=== PATIENT | female | born 1985 | race Caucasian/White ===

== ENCOUNTER 2016-04-02 19:47 | Emergency (ER) | payer BC ==
[~2016-04-02] VITALS: Ht 177.8 cm; Wt 94.5 kg
[2016-04-02 19:49] VITALS: BP 169/105; PULSE 98; RESP 16; TEMP 98.3; O2SAT 100
[2016-04-03] MEDS ORDERED: BIRTH CONTROL (00:23)
[2016-04-03] MEDS ORDERED: ZYRT10CA PO (00:23)
[2016-04-03 00:24] VITALS: BP 161/96; PULSE 79; RESP 16; O2SAT 100
[2016-04-03 02:16] LABS: BACTERIA, URINE RARE /hpf; BLOOD, URINE NEG (NEG); CALCIUM OXALATE CRYSTALS,URINE MOD /hpf; COMMENT (UR) CULT NOT INDICATED; CULTURE IF INDICATED CULT NOT INDICATED; GLUCOSE,URINE NEG (NEG); KETONE, URINE NEG (NEG); MUCUS URINE FEW /lpf (OCC); NITRITE,URINE NEG (NEG); SQUAMOUS EPITHELIAL CELL URINE 1 /hpf (0-5); URINE COLOR YELLOW (YELLW/STRAW)
[2016-04-03 02:21] LABS: AUTOMATED NEUTROPHIL # 7.7 TH/MM3 (1.8-7.7); BASOPHIL # 0.1 TH/MM3 (0-0.2); BASOPHIL % 0.5 % (0.0-2.0); EOSINOPHIL # 0.2 TH/MM3 (0-0.4); EOSINOPHIL % 1.8 % (0.0-4.0); HEMATOCRIT 44.7 % (35.0-46.0); HEMO FLAGS DIFF FINAL; LYMPH % 33.3 % (9.0-44.0); LYMPHOCYTE # 4.3 TH/MM3 (1.0-4.8); MEAN CELL VOLUME 88.7 FL (80.0-100.0); MEAN CORPUSCULAR HEMOGLOBIN 30.4 PG (27.0-34.0); MEAN CORPUSCULAR HGB CONC 34.3 % (32.0-36.0); MONO % 5.3 % (0.0-8.0); NEUT % 59.1 % (16.0-70.0); PLATELET COUNT 280 TH/MM3 (150-450); RED BLOOD COUNT 5.04 MIL/MM3 (4.00-5.30); RED CELL DISTRIBUTION WIDTH 12.6 % (11.6-17.2)
[2016-04-03 02:39] LABS: BICARBONATE 25.7 MEQ/L (21.0-32.0); POTASSIUM 3.7 MEQ/L (3.5-5.1)
--- NOTE | 2016-04-03 02:59 | RADRPT ---
EXAM DATE/TIME: 04/03/2016 02:13 [facility] COMPARISON: No previous studies available for comparison. INDICATIONS : Back pain. MEDICAL HISTORY : None. SURGICAL HISTORY : None. ENCOUNTER: Initial ACUITY: 2 days PAIN SCORE: 0/10 LOCATION: lumbar spine. FINDINGS: Two view examination was performed. There are five non-rib bearing vertebral bodies. The vertebral bodies are in normal alignment without evidence of subluxation or scoliosis. There is straightening. Disc space narrowing without osteophyte production at L5-S1. Remaining disc space heights are preserv ed. The pedicles are intact. Bony mineralization is normal. No fracture is identified. CONCLUSION: No acute disease. Avery Barnhart Jr., MD on April 03, 2016 at 2:56 Board Certified Radiologist. This report was verified electronically.
--- NOTE | 2016-04-03 05:24 | RADRPT ---
EXAM DATE/TIME: 04/03/2016 03:10 [facility] COMPARISON: No previous studies available for comparison. INDICATIONS : Radiculopathy. MEDICAL HISTORY : None. SURGICAL HISTORY : None. ENCOUNTER: Initial ACUITY: 1 week PAIN SCORE: 0/10 LOCATION: Low back TECHNIQUE: Multiplanar multisequence MRI of the lumbar spine was performed without contrast. FINDINGS: The most caudal appearing lumbar vertebra is numbered as L5. VERTEBRAE: Homogeneous signal. Normal alignment. CONUS: Normal level and configuration. T12-L1: The thecal sac has a normal diameter. No evidence of disc bulge or protrusion. The neural foramina are patent bilaterally. L1-L2: The thecal sac has a normal diameter. No evidence of disc bulge or protrusion. The neural foramina are patent bilaterally. L2-L3: The thecal sac has a normal diameter. No evidence of disc bulge or protrusion. The neural foramina are patent bilaterally. L3-L4: There is linear high T2 signal involving the posterior annulus. A left posterior lateral disc protrus ion totally effaces the left lateral recess. Central canal narrowing is noted. The intrathecal space measures 8 mm in anterior to posterior dimension within the midline. Right lateral recess is patent. Moderate bony hypertrophy of the facets. Narrowing of the left neural foramen with the disc just touc viki the anterior margin of the exiting L3 nerve root. The right is patent. L4-L5: Linear high T2 signal is seen involving the posterior annulus. There is a central disc bulge. There i s narrowing of both lateral recesses as well as the central canal. The intrathecal space measures 9 m m in the midline. Mild ligamentum flavum hypertrophy of the facet joints. Neural foramen remain paten t. L5-S1: There is linear high T2 signal involving the posterior annulus. A right posterior lateral disc protru anupama totally effaces the right lateral recess and causes narrowing of the central canal. The intrathe sukumar space measures 5 mm in the midline. Neural foramina remain patent. CONCLUSION: 1. Quite advanced degenerative changes of L3-L4, L4-L5, and L5-S1 for a patient of this age. There is central canal stenosis as well as effacement of the lateral recesses as detailed at each level in th e above discussion. Avery Barnhart Jr., MD on April 03, 2016 at 5:18 Board Certified Radiologist. This report was verified electronically.
--- NOTE | 2016-04-03 05:25 | RADRPT ---
EXAM DATE/TIME: 04/03/2016 03:10 [facility] COMPARISON: No previous studies available for comparison. INDICATIONS : Radiculopathy. MEDICAL HISTORY : None. SURGICAL HISTORY : None. ENCOUNTER: Initial ACUITY: 1 week PAIN SCORE: 0/10 LOCATION: Sacrum TECHNIQUE: Multiplanar multisequence MRI examination of the sacrum/coccyx was performed. FINDINGS: Please see MRI of the lumbar spine reported separately. BONE/CARTILAGE: Bone marrow signal is homogeneous. Articular cartilage signal is within normal limits. MUSCLES/TENDONS: All of the visualized muscles and tendons are intact. MISCELLANEOUS: Neurovascular structures are within normal limits. Multiple small follicular cysts are seen involving the ovaries. CONCLUSION: 1. Please see the MRI of the lumbar spine reported separately. 2. Normal sacrum. Avery Barnhart Jr., MD on April 03, 2016 at 5:23 Board Certified Radiologist. This report was verified electronically.
--- NOTE | 2016-04-03 05:45 | PD ---
HPI Chief Complaint: Numbness/Tingling Time Seen by Provider: 01:59 Travel History International Travel<30 days: No Contact w/Intl Traveler<30days: No Traveled to known affect area: No History of Present Illness HPI 31-year-old female presents to the emergency department by private transportation for complaint of one day of left buttock numbness left proximal posterior thigh numbness and vaginal numbness. Patient states she awakened with symptoms. Due to persistence of symptoms decided to come to the emergency room for evaluation. Patient states approximate 2-3 weeks ago she strained her back with an unknown activity and started to notice low back pain. Patient was seen by a masseuse and had a massage with no improvement of symptoms. Patient went to see her primary care physician who prescribed a muscle relaxant with symptomatic relief and had been doing well until the last few days she's noticed some intermittent muscle twitching and muscle spasm to the left buttock and left posterior thigh distribution. Patient states that she's had no bladder or bowel dysfunction. Patient's continued to have good urine output without retention and has had good bowel movement without incontinence although she does note that she does have some decreased sensation with noting that she is having a bowel movement. Patient denies any lower extremity weakness. Patient has no back pain at this time. Patient has no previous history of any radiculopathy. Patient is otherwise in good health except for history of polycystic ovary syndrome. Last visit. Was normal for her. Patient denies . Patient's had no fever or chills. PFSH Past Medical History Narrative Medical Polycystic ovary disease hypoglycemia,; no surgeries; tobacco use alcohol use marijuana use; nursing notes reviewed Reproductive: Yes (POLYCYSTIC OVARIAN SYNDROME) Tetanus Vaccination: < 5 Years Influenza Vaccination: No ?: Not Past Surgical History Surgical History: No Previous Surgery Social History Alcohol Use: Yes (OCC) Tobacco Use: Yes (1 PPD) Substance Use: Yes (MARIJUANA) Allergies-Medications (Allergen,Severity, Reaction): Coded Allergies: No Known Allergies (Unverified , 04/03/16) Reported Meds & Prescriptions Reported Meds & Active Scripts Active Prednisone 50 Mg Tab 50 Mg PO DAILY 4 Days Reported Zyrtec Allergy (Cetirizine HCl) 10 Mg Cap 10 Mg PO DAILY [ Control] Review of Systems Except as stated in HPI: all other systems reviewed are Neg General / Constitutional: No: Fever, Chills HENT: No: Congestion, Neck Pain Cardiovascular: No: Chest Pain or Discomfort Respiratory: No: Cough, Shortness of Breath Gastrointestinal: No: Nausea, Vomiting, Abdominal Pain Genitourinary: No: Dysuria, Decreased Urinary Output, Hesitancy, Dribbling, Incontinence, Pelvic Pain Musculoskeletal: No: Myalgias, Arthralgias Skin: No Rash Neurologic: Positive: Paresthesia (left buttock vaginal and proximal posterior left lower extremity), No: Weakness Psychiatric: No: Anxiety Hematologic/Lymphatic: No: Lymph Node Enlargement Physical Exam Narrative GENERAL: Well-developed well-nourished female in no acute distress no respiratory distress SKIN: Warm and dry. HEAD: Atraumatic. Normocephalic. EYES: Pupils equal and round. No scleral icterus. No injection or drainage. ENT: No nasal bleeding or discharge. Mucous membranes pink and moist. NECK: Trachea midline. No JVD. CARDIOVASCULAR: Regular rate and rhythm. RESPIRATORY: No accessory muscle use. Clear to auscultation. Breath sounds equal bilaterally. GASTROINTESTINAL: Abdomen soft, non-tender, nondistended. Hepatic and splenic margins not palpable. Rectal exam normal sphincter tone. MUSCULOSKELETAL: Extremities without clubbing, cyanosis, or edema. No obvious deformities. NEUROLOGICAL: Awake and alert. No obvious cranial nerve deficits. Motor grossly within normal limits. Five out of 5 muscle strength in the arms and legs. DTRs 2+ and symmetric no clonus. Sensory exam intact to light touch and pinprick to the left buttock cheek and left lower extremity with decreased sensation to the left labia majora. Normal speech. PSYCHIATRIC: Appropriate mood and affect; insight and judgment normal. Data Data Last Documented VS Vital Signs Date Time Temp Pulse Resp B/P Pulse Ox O2 Delivery O2 Flow Rate FiO2 04/03/16 06:39 80 16 157/96 99 Room Air 04/02/16 19:49 98.3 Orders Blood Glucose (04/03/16 02:00) Complete Blood Count With Diff (04/03/16 02:00) Basic Metabolic Panel (Bmp) (04/03/16 02:00) Spine, Lumbar - Ltd (Ap & Lat) (04/03/16 ) Ed Urine Pregnancytest Poc (04/03/16 02:00) Urinalysis - C+S If Indicated (04/03/16 02:00) Mri L Spine W/O Contrast (04/03/16 ) Mri Sacrum/Coccyx W/O Contrast (04/03/16 ) Dexamethasone Inj (Decadron Inj) (04/03/16 06:15) Labs Laboratory Tests Test 04/03/16 00:30 White Blood Count 13.0 TH/MM3 Red Blood Count 5.04 MIL/MM3 Hemoglobin 15.3 GM/DL Hematocrit 44.7 % Mean Corpuscular Volume 88.7 FL Mean Corpuscular Hemoglobin 30.4 PG Mean Corpuscular Hemoglobin 34.3 % Concent Red Cell Distribution Width 12.6 % Platelet Count 280 TH/MM3 Mean Platelet Volume 10.2 FL Neutrophils (%) (Auto) 59.1 % Lymphocytes (%) (Auto) 33.3 % Monocytes (%) (Auto) 5.3 % Eosinophils (%) (Auto) 1.8 % Basophils (%) (Auto) 0.5 % Neutrophils # (Auto) 7.7 TH/MM3 Lymphocytes # (Auto) 4.3 TH/MM3 Monocytes # (Auto) 0.7 TH/MM3 Eosinophils # (Auto) 0.2 TH/MM3 Basophils # (Auto) 0.1 TH/MM3 CBC Comment DIFF FINAL Differential Comment Urine Color YELLOW Urine Turbidity HAZY Urine pH 6.0 Urine Specific [place] 1.026 Urine Protein NEG mg/dL Urine Glucose (UA) NEG mg/dL Urine Ketones NEG mg/dL Urine Occult Blood NEG Urine Nitrite NEG Urine Bilirubin NEG Urine Urobilinogen 2.0 MG/DL Urine Leukocyte Esterase NEG Urine RBC LESS THAN 1 /hpf Urine WBC 3 /hpf Urine Squamous Epithelial 1 /hpf Cells Urine Calcium Oxalate Crystals MOD /hpf Urine Bacteria RARE /hpf Urine Mucus FEW /lpf Microscopic Urinalysis Comment CULT NOT INDICATED Sodium Level 140 MEQ/L Potassium Level 3.7 MEQ/L Chloride Level 104 MEQ/L Carbon Dioxide Level 25.7 MEQ/L Anion Gap 10 MEQ/L Blood Urea Nitrogen 10 MG/DL Creatinine 0.62 MG/DL Estimat Glomerular Filtration 112 ML/MIN Rate Random Glucose 95 MG/DL Calcium Level 9.0 MG/DL MDM Medical Decision Making Medical Screen Exam Complete: Yes Emergency Medical Condition: Yes Medical Record Reviewed: Yes Interpretation(s) Laboratory Tests Test 04/03/16 00:30 White Blood Count 13.0 TH/MM3 Red Blood Count 5.04 MIL/MM3 Hemoglobin 15.3 GM/DL Hematocrit 44.7 % Mean Corpuscular Volume 88.7 FL Mean Corpuscular Hemoglobin 30.4 PG Mean Corpuscular Hemoglobin 34.3 % Concent Red Cell Distribution Width 12.6 % Platelet Count 280 TH/MM3 Mean Platelet Volume 10.2 FL Neutrophils (%) (Auto) 59.1 % Lymphocytes (%) (Auto) 33.3 % Monocytes (%) (Auto) 5.3 % Eosinophils (%) (Auto) 1.8 % Basophils (%) (Auto) 0.5 % Neutrophils # (Auto) 7.7 TH/MM3 Lymphocytes # (Auto) 4.3 TH/MM3 Monocytes # (Auto) 0.7 TH/MM3 Eosinophils # (Auto) 0.2 TH/MM3 Basophils # (Auto) 0.1 TH/MM3 CBC Comment DIFF FINAL Differential Comment Urine Color YELLOW Urine Turbidity HAZY Urine pH 6.0 Urine Specific [place] 1.026 Urine Protein NEG mg/dL Urine Glucose (UA) NEG mg/dL Urine Ketones NEG mg/dL Urine Occult Blood NEG Urine Nitrite NEG Urine Bilirubin NEG Urine Urobilinogen 2.0 MG/DL Urine Leukocyte Esterase NEG Urine RBC LESS THAN 1 /hpf Urine WBC 3 /hpf Urine Squamous Epithelial 1 /hpf Cells Urine Calcium Oxalate Crystals MOD /hpf Urine Bacteria RARE /hpf Urine Mucus FEW /lpf Microscopic Urinalysis Comment CULT NOT INDICATED Sodium Level 140 MEQ/L Potassium Level 3.7 MEQ/L Chloride Level 104 MEQ/L Carbon Dioxide Level 25.7 MEQ/L Anion Gap 10 MEQ/L Blood Urea Nitrogen 10 MG/DL Creatinine 0.62 MG/DL Estimat Glomerular Filtration 112 ML/MIN Rate Random Glucose 95 MG/DL Calcium Level 9.0 MG/DL Differential Diagnosis Paresthesia, lumbar radiculopathy, cauda equina, transverse myelitis, unlikely epidural abscess Narrative Course Specimens collected and sent for resulting plain x-ray ordered and MRIs of the lumbar and sacrum ordered Patient not voicing any complaint of pain at this time. IV fluids administered. Patient aware that imaging studies remain pending MRI reveals extensive degenerative and HNP changes of the L3 4 L4 5 and L5-S1 disc Patient is where patient's case has been discussed in detail with neurologist with recommendation for management as surgical intervention versus epidural steroid intervention versus conservative management with medications to see if that symptoms will improve without procedural or surgical intervention. Patient does not want to proceed with the procedure procedures or surgeries at this time is willing to start steroid therapy and will continue muscle relaxant. Patient identifies that she is actually here for a week on vacation and will leave early to return home but does not want to have any seizure will intervention of this time patient remains with intact motor strength and focal unilateral paresthesias that has not worsened. Patient appears stable at this time for outpatient management. Patient is encouraged strongly to follow-up with her primary care physician and to be referred to neurosurgery orthopedist in her area that manages disc disorders. Physician Communication Physician Communication case discussed with Dr Coughlin offers patient to wait to see if symptoms resolve as outpatient, undergo epidural steroid injections, or have surgical decompression today. Patient's case has been discussed with patient extensively and she is desirous of deferring any procedural intervention would like to be placed on steroids. Per Dr. Coughlin recommends follow-up as an outpatient as she will need to schedule appointment and should she change her mind and request surgical intervention distally to be scheduled as well. Diagnosis Primary Impression: HNP (herniated nucleus pulposus), lumbar Referrals: Neurosurgeon call for appointment Health Record Technician neurosurgeon Dr Coughlin Primary Care Physician call for appointment Patient Instructions: General Instructions Additional Instructions: Take medications as prescribed Follow-up with your primary care physician and call for appointment with local neurosurgeon Dr. Coughlin or with neurosurgeon or orthopedist in your home area upon return home Return to the emergency department for any concerns or change in condition difficulty with urination bowel movement control or weakness of the extremities specifically left lower extremity. Increase fluid hydration Med/Other Pt SpecificInfo: Prescription(s) given Scripts Prednisone 50 Mg Tab50 Mg PO DAILY 4 Days Ref 0 Prov:Kyung Donohue MD 04/03/16 Disposition: DISCHARGE HOME Condition: Stable Kyung Donohue MD Apr 03, 2016 05:45
[2016-04-03] MEDS ORDERED: PRED50 PO (06:14)
[2016-04-03] MEDS ORDERED: DEXAMETHASONE SOD PHOS 20 MG/5 ML VIAL IV PUSH ONE (06:15)
[2016-04-03 06:39] VITALS: BP 157/96; PULSE 80; RESP 16; O2SAT 99
== END 2016-04-03 07:19 | disposition home or self-care (01) ==
LOC: NEPC 19:47
DX: M51.16 Intervertebral disc disorders with radiculopathy, lumbar region (principal); F17.210 Nicotine dependence, cigarettes, uncomplicated; F12.90 Cannabis use, unspecified, uncomplicated; M62.830 Muscle spasm of back
CPT/HCPCS: 72100; 72148; 72195; 80048; 81001; 84703; 85025; 96374; 99284; J1100